=== PATIENT | male | born 1995 | race Caucasian/White ===

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

== ENCOUNTER 2018-05-01 07:48 | Emergency (ER) | payer OTHER ==
[2018-05-01 07:55] VITALS: RESP 18
--- NOTE | 2018-05-01 08:34 | ED ---
Skin/Abscess/FB HPI - General Chief complaint: Skin/Abscess/Foreign Body Stated complaint: inhaled plastic/chest pain Time Seen by Provider: 05/01/18 08:05 Source: patient, RN notes reviewed, old records reviewed Mode of arrival: ambulatory Limitations: no limitations - History of Present Illness Initial comments: Patient is 22-year-old male presents emergency department if she plan of inhaling a piece of the propellant 4 days ago. Patient reports that after he was coughing. Patient reports that he used a friend's updraft machine at the friend pad on his back try to get the foreign body up. He states that he could not do that. Again this happened 4 days ago. Patient reports today started having some chest pain and discomfort and slight difficulty breathing. He reports that he is not coughing at this time. No hemoptysis. - Related Data Home Medications Medication Instructions Recorded Confirmed Ibuprofen [Motrin] 800 mg PO DAILY PRN 11/27/16 11/27/16 guaiFENesin SYRUP 100MG/5ML 200 mg PO BID PRN 11/27/16 11/27/16 [Robitussin] guaiFENesin [Mucinex] 600 mg PO Q4H PRN 11/27/16 11/27/16 Previous Rx's Medication Instructions Recorded Azithromycin [Zithromax Z-pack] 250 mg PO DIRECTED #6 tab 11/27/16 Albuterol Inhaler [Ventolin Hfa 1 - 2 puff INHALATION RT-Q6H PRN 05/01/18 Inhaler] #1 inhaler Allergies Allergy/AdvReac Type Severity Reaction Status Date / Time amoxicillin Allergy Rash/Hives Verified 11/27/16 21:58 Penicillins Allergy Rash/Hives Verified 11/27/16 21:58 Review of Systems ROS Statement: Those systems with pertinent positive or pertinent negative responses have been documented in the HPI. ROS Other: All systems not noted in ROS Statement are negative. Past Medical History Past Medical History: No Reported History History of Any Multi-Drug Resistant Organisms: None Reported Past Surgical History: No Surgical Hx Reported Past Psychological History: No Psychological Hx Reported Smoking Status: Current some day smoker Past Alcohol Use History: Occasional Past Drug Use History: Marijuana General Exam - General Exam Comments Initial Comments: This is a 22-year-old male. Alert and oriented. No significant distress. Limitations: no limitations General appearance: alert, in no apparent distress Head exam: Present: atraumatic, normocephalic, normal inspection Eye exam: Present: normal appearance ENT exam: Present: normal exam, mucous membranes moist Neck exam: Present: normal inspection. Absent: tenderness, meningismus, lymphadenopathy Respiratory exam: Present: normal lung sounds bilaterally. Absent: respiratory distress, wheezes, rales, rhonchi, stridor Cardiovascular Exam: Present: regular rate, normal rhythm, normal heart sounds. Absent: systolic murmur, diastolic murmur, rubs, gallop, clicks GI/Abdominal exam: Present: soft, normal bowel sounds. Absent: distended, tenderness, guarding, rebound, rigid Extremities exam: Present: normal inspection, full ROM, normal capillary refill. Absent: tenderness, pedal edema, joint swelling, calf tenderness Back exam: Present: normal inspection Neurological exam: Present: alert, oriented X3, CN II-XII intact Psychiatric exam: Present: normal affect, normal mood Course Vital Signs 05/01/18 05/01/18 07:51 08:04 Temperature 97.6 F Pulse Rate 85 Respiratory 18 18 Rate Blood Pressure 112/71 O2 Sat by Pulse 98 Oximetry Medical Decision Making - Medical Decision Making Patient is 22-year-old male presents emergency Department with chief complaint of accidentally inhaling piece of plastic from his sleep pattern. This happened 4 days ago. He reports that he may have inhaled a 1 cm x 0.5 cm x 2 mm rectangular foreign body. It is white in color. He has another one here with him. It is a filter for his VapoRub pen. Patient lungs are clear to auscultation at this time. He has no significant wheezing and stridor. He is not coughing in the exam room. No fevers or chills. Chest x-ray this time is negative for any acute process. I did discuss that this could be a nidus for infection such as pneumonia. Patient will be given information follow-up with PCP and pulmonology. He may need to have a bronchoscopy. Considering Patient has no other major respiratory distress or other symptoms at this time Patient can be monitored. I discussed with the Patient on inhaler. All questions answered return parameters were discussed. - Radiology Data Radiology results: report reviewed Chest x-rays negative for any acute process. Disposition Clinical Impression: Inhaled foreign object Disposition: HOME SELF-CARE Condition: Good Instructions: Aspiration Pneumonia (DC) Additional Instructions: Patient has follow-up with primary care physician in pulmonology. He is here earlier as needed for shortness of breath. And coughing. Patient may need to follow-up with pulmonology for bronchoscopy for foreign body removal. Prescriptions: Albuterol Inhaler [Ventolin Hfa Inhaler] 1 - 2 puff INHALATION RT-Q6H PRN #1 inhaler PRN Reason: Shortness Of Breath Is patient prescribed a controlled substance at d/c from ED?: No Referrals: None,Stated [Primary Care Provider] - 1-2 days Jerome Suggs MD [STAFF PHYSICIAN] - 1-2 days Time of Disposition: 08:45
--- NOTE | 2018-05-01 08:37 | XR ---
EXAMINATION TYPE: XR chest 2V DATE OF EXAM: 05/01/2018 COMPARISON: NONE HISTORY: Inhalation incident, burning feeling in chest, pain TECHNIQUE: Frontal and lateral views of the chest are obtained. FINDINGS: There is no focal air space opacity, pleural effusion, or pneumothorax seen. The cardiac silhouette size is within normal limits. The osseous structures are intact. IMPRESSION: No acute cardiopulmonary process.
[2018-05-01 09:11] VITALS: BP 121/59; PULSE 56; TEMP 97.5
== END 2018-05-01 09:13 | disposition home or self-care (01) ==
LOC: EC 07:48
DX: T17.998A Other foreign object in respiratory tract, part unspecified causing other injury, initial encounter (principal); F17.200 Nicotine dependence, unspecified, uncomplicated; Z88.0 Allergy status to penicillin
CPT/HCPCS: 71046; 99285

== ENCOUNTER 2018-05-03 00:24 | Emergency (ER) | payer OTHER ==
[2018-05-03 00:29] VITALS: BP 114/63; PULSE 65; RESP 17; TEMP 98.1
--- NOTE | 2018-05-03 01:18 | XR ---
EXAMINATION TYPE: XR chest 2V DATE OF EXAM: 05/03/2018 COMPARISON: 05/01/2018 HISTORY: Chest pain TECHNIQUE: Frontal and lateral views of the chest are obtained. FINDINGS: Heart and mediastinum are normal. Lungs are clear. Diaphragm is normal. Bony thorax appear s normal. IMPRESSION: Normal chest. No change.
[2018-05-03] MEDS ORDERED: predniSONE 20 MG TAB PO STA (01:46)
--- NOTE | 2018-05-03 01:49 | ED ---
SOB HPI - General Chief Complaint: Shortness of Breath Stated Complaint: SOB Time Seen by Provider: 05/03/18 01:31 Source: patient Mode of arrival: ambulatory Limitations: no limitations - History of Present Illness Initial Comments: Is a 22-year-old male who presents emergency department for an episode of shortness of breath. The patient was seen here couple of days ago for similar. The patient states that he accidentally inhaled a TicTac size piece of plastic from his friends rate and. He states that since that he's been having intermittent episodes of shortness of breath. He had an episode tonight which she stated was relieved with albuterol. He states that it felt like he was breathing through a straw. The patient does have a follow-up appointment with a credentials specialist in the next 7 days however became concerned and returned to the emergency department. The patient states that his symptoms have now completely resolved and he feels back to normal. He denies any fevers or chills. No cough. No other acute complaints. - Related Data Home Medications Medication Instructions Recorded Confirmed Ibuprofen [Motrin] 800 mg PO DAILY PRN 11/27/16 11/27/16 guaiFENesin SYRUP 100MG/5ML 200 mg PO BID PRN 11/27/16 11/27/16 [Robitussin] guaiFENesin [Mucinex] 600 mg PO Q4H PRN 11/27/16 11/27/16 Previous Rx's Medication Instructions Recorded Azithromycin [Zithromax Z-pack] 250 mg PO DIRECTED #6 tab 11/27/16 Albuterol Inhaler [Ventolin Hfa 1 - 2 puff INHALATION RT-Q6H PRN 05/01/18 Inhaler] #1 inhaler predniSONE 50 mg PO DAILY #4 tablet 05/03/18 Allergies Allergy/AdvReac Type Severity Reaction Status Date / Time amoxicillin Allergy Rash/Hives Verified 05/03/18 00:29 Penicillins Allergy Rash/Hives Verified 05/03/18 00:29 Review of Systems ROS Statement: Those systems with pertinent positive or pertinent negative responses have been documented in the HPI. ROS Other: All systems not noted in ROS Statement are negative. Past Medical History Past Medical History: No Reported History History of Any Multi-Drug Resistant Organisms: None Reported Past Surgical History: No Surgical Hx Reported Past Psychological History: No Psychological Hx Reported Smoking Status: Current some day smoker Past Alcohol Use History: Occasional Past Drug Use History: Marijuana General Exam - General Exam Comments Initial Comments: Constitutional: Awake alert Appears comfortable Head: Normocephalic atraumatic Eyes: no conjunctival injection No scleral icterus EOMI Neck: No JVD Supple Heart: Regular rate rhythm normal S1-S2 no murmurs Lungs: Clear to auscultation bilaterally No wheezing No rales Abdomen: Soft nondistended nontender Extremities: Non edematous DP pulses intact Radial pulses intact Neuro: A&Ox3 No focal neurologic deficits Psych: Appropriate mood and affect Limitations: no limitations Course Vital Signs 05/03/18 00:25 Temperature 98.1 F Pulse Rate 65 Respiratory 17 Rate Blood Pressure 114/63 O2 Sat by Pulse 98 Oximetry Medical Decision Making - Medical Decision Making This is a 22-year-old male who came in for shortness of breath. I had along discussion with the patient. Chest x-ray was unremarkable and unchanged from previous. The patient does have an appointment with a credentials specialist in the future. I stated that likely there would be nothing emergent done this evening. I did state that if we want to get a better look at his pulmonary airways that a computed tomography scan would be a better study. However the likelihood of x-ray finding the small piece of plastic was very low and would likely not knife changer. He stated that he did not want to pursue a study that would cost him more money and not necessarily change the outcome. I told him that I would add steroids to his regimen. Told to use the albuterol every 6 hours. He can always return if he is concerned or has worsening symptoms. Otherwise follow-up with pulmonology. All questions answered. Disposition Clinical Impression: Aspiration of foreign body Disposition: HOME SELF-CARE Condition: Stable Instructions: Flexible Bronchoscopy (ED) Prescriptions: predniSONE 50 mg PO DAILY #4 tablet Is patient prescribed a controlled substance at d/c from ED?: No Referrals: None,Stated [Primary Care Provider] - 1-2 days
== END 2018-05-03 02:21 | disposition home or self-care (01) ==
LOC: EC 00:24
DX: T17.990A Other foreign object in respiratory tract, part unspecified in causing asphyxiation, initial encounter (principal); F17.200 Nicotine dependence, unspecified, uncomplicated; Z88.0 Allergy status to penicillin
CPT/HCPCS: 71046; 99285; J7512

== ENCOUNTER 2018-05-11 14:01 | Day surgery (SDC) | payer OTHER ==
[2018-05-11 14:22] VITALS: RESP 16; TEMP 97.9
[2018-05-11] MEDS ORDERED: KETAMINE 10 MG/ML 20 ML VIAL ONE (15:41)
[2018-05-11] MEDS ORDERED: PROPOFOL 10 MG/ML 20 ML VIAL IV ONE (15:41)
[2018-05-11] MEDS ORDERED: MIDAZOLAM 2 MG/2 ML VIAL ONE (15:41)
[2018-05-11] MEDS ORDERED: LIDOCAINE 1% INJ 10MG/ML (20 ML MDV) ONE (15:41)
[2018-05-11] MEDS ORDERED: LACTATED RINGERS 1,000 ML IV ONE (15:46)
[2018-05-11 16:22] VITALS: BP 110/60; PULSE 70
--- NOTE | 2018-05-11 21:29 | PCN ---
PROCEDURE NOTE OPERATIVE PROCEDURE: Bronchoscopy and airways examination. PREOPERATIVE DIAGNOSIS: History of foreign body inhalation/aspiration. POSTOPERATIVE DIAGNOSIS: No evidence of a foreign body seen in the airways upon bronchoscopy. ANESTHESIA USED: IV conscious sedation by ENCAPSULATOR. PROCEDURE: The patient was prepared according to the bronchoscopy protocol. O2 was applied via nasal cannula, and the patient was placed in a supine position. We monitored his O2 saturation continuously. Blood pressure was intermittently monitored. Cardiac rhythm was continuously monitored. After adequate IV conscious sedation, a few mL of lidocaine were instilled into the right naris, and the bronchoscope was advanced through the right nares to the area of the vocal cords. The area of the vocal cords was normal. Piriform sinuses were clear. There was no evidence of foreign body anywhere around the area of the vocal cords or upper airways. Then lidocaine was applied over the vocal cords, the bronchoscope was advanced further down. Thorough examination was done of the trachea, meghann, right upper lobe, right middle lobe, right lower lobe left upper lobe lingula and left lower lobe. Thorough examination was done, each individual lobe and segments were examined, and there was no evidence of foreign body in the airways. Then the bronchoscope was pulled out of the airways, procedure was well tolerated, and no evidence of any immediate complications. The patient will be assured, and the pictures will be shown to the patient and his mother. MMODL / IJN: [id number] /
== END 2018-05-11 16:37 | disposition home or self-care (01) ==
LOC: RADXRMAIN 14:01 → ORWHC2ENDO 16:37
PROVIDERS: ATTEND Internal Medicine
DX: T17.900A Unspecified foreign body in respiratory tract, part unspecified causing asphyxiation, initial encounter (principal); F17.210 Nicotine dependence, cigarettes, uncomplicated; Z88.0 Allergy status to penicillin
CPT/HCPCS: 31622; J2250; J2001; J2704; 31635

== ENCOUNTER → 2018-05-17 | Outpatient (CLI) | payer OTHER ==
[2018-05-17 17:06] LABS: ABG HCO3 26 mmol/L (21-25); ABG PCO2 41 mmHg (35-45); ABG PO2 100 mmHg (83-108); ABG TCO2 27 mmol/L (19-24)
[2018-05-17 17:07] LABS: ABG Base Excess 0.8 mmol/L
== END | disposition home or self-care (01) ==
LOC: LABWHC1 16:43
PROVIDERS: ATTEND Internal Medicine
DX: R06.02 Shortness of breath (principal)
CPT/HCPCS: 36415; 36600; 82805; 85379

== ENCOUNTER 2020-08-27 08:08 | Day surgery (SDC) | payer OTHER ==
[2020-08-24 14:28] VITALS: BMI 27.0
[~2020-08-27 08:08] MED LIST: LACTATED RINGERS 1,000 ML IV SCH; LIDOCAINE 1% (10MG/ML) FOR IV START INTRADERMA PRN
[2020-08-27 08:29] VITALS: TEMP 97.7
[2020-08-27] MEDS ORDERED: PROPOFOL 10 MG/ML 20 ML VIAL IV ONE (09:49)
[2020-08-27] MEDS ORDERED: GLYCOPYRROLATE 0.2 MG/ML 2 ML VIAL ONE (09:49)
[2020-08-27] MEDS ORDERED: LIDOCAINE 1% INJ 10MG/ML (20 ML MDV) ONE (09:49)
[2020-08-27] MEDS ORDERED: MIDAZOLAM 2 MG/2 ML VIAL ONE (09:49)
--- NOTE | 2020-08-27 09:55 | P.GSHP ---
History of Present Illness H&P Date: 08/27/20 Chief Complaint: GERD This a 24-year-old male who presents today for EGD. Had issues with GERD. Past Medical History Past Medical History: GERD/Reflux Additional Past Medical History / Comment(s): difficulty breathing and pain in chest [id number] History of Any Multi-Drug Resistant Organisms: None Reported Past Surgical History: No Surgical Hx Reported Additional Past Surgical History / Comment(s): bronchoscopy Past Anesthesia/Blood Transfusion Reactions: No Reported Reaction Smoking Status: Never smoker Medications and Allergies Home Medications Medication Instructions Recorded Confirmed Type Albuterol Inhaler (u) [Ventolin 1 - 2 puff INHALATION RT-Q6H PRN 05/01/18 08/27/20 Rx Hfa Inhaler (u)] #1 inhaler Omeprazole 20 mg PO DAILY 08/24/20 08/27/20 History Allergies Allergy/AdvReac Type Severity Reaction Status Date / Time amoxicillin Allergy Rash/Hives Verified 08/24/20 14:23 Penicillins Allergy Rash/Hives Verified 08/24/20 14:23 Surgical - Exam Vital Signs Temp Pulse Resp BP Pulse Ox 97.7 F 76 16 128/68 98 08/27/20 08:24 08/27/20 08:24 08/27/20 08:24 08/27/20 08:24 08/27/20 08:24 - General well developed, well nourished, no distress - Eyes PERRL - ENT normal pinna - Neck no masses - Respiratory normal expansion - Cardiovascular Rhythm: regular - Abdomen Abdomen: soft, non tender Assessment and Plan Assessment: GERD. We'll perform EGD.
--- NOTE | 2020-08-27 10:00 | P.OP ---
Date of Procedure: 08/27/20 Preoperative Diagnosis: GERD Postoperative Diagnosis: Antral gastritis Procedure(s) Performed: EGD Anesthesia: MAC Surgeon: Chester Murphy Pathology: other (Antrum) Condition: stable Disposition: PACU Description of Procedure: The patient's placed on the endoscopy table in the lateral position. He recei karen IV sedation. The gastroscope placed oropharynx passed in the esophagus and stomach. Scope was pylorus. The first and second portion of the duodenum appeared normal. Scope was then brought back the antrum this. Mildly inflamed. A biopsies performed. Scope was unretroflexed and remainder stomach appeared normal. There is no significant hiatal hernia. The GE junction was at 47. The distal esophagus appeared normal. The proximal esophagus appeared normal. Scope was withdrawn for patient.
[2020-08-27 10:19] VITALS: RESP 16
[2020-08-27 10:40] VITALS: BP 122/74; PULSE 74
--- NOTE | 2020-08-27 13:50 | NM ---
EXAMINATION TYPE: NM hepatobiliary w CCK DATE OF EXAM: 08/27/2020 COMPARISON: NONE HISTORY: Indigestion and pain. Epigastric pain with increased appetite per patient. TECHNIQUE: After the intravenous administration of 4.4 mCi Tc 99m Mebrofenin hepatobiliary scintigrap hy is performed. Immediate images post injection. FINDINGS: There is satisfactory initial accumulation of tracer by the liver. The gallbladder is visualized wit hin 20 minutes. The small bowel activity is not even well seen even after 60 minutes. At one hour C CK was administered, patient was injected with 2.0 mcg of Kinevac, and gallbladder ejection fraction is calculated at 43 %, in the normal range. Therefore there is no scintigraphic evidence of cystic o r common bile duct obstruction to suggest acute cholecystitis or gallbladder dyskinesia. IMPRESSION: Exam is within normal limits.
== END 2020-08-27 10:47 | disposition home or self-care (01) ==
LOC: ORWHC2ENDO 08:08
PROVIDERS: ATTEND Surgery
DX: K29.50 Unspecified chronic gastritis without bleeding (principal); K21.9 Gastro-esophageal reflux disease without esophagitis; J45.909 Unspecified asthma, uncomplicated; Z87.09 Personal history of other diseases of the respiratory system; Z79.899 Other long term (current) drug therapy; Z88.0 Allergy status to penicillin
CPT/HCPCS: 88305; 78227; 43239; A9537; J2250; J2805; J2001; J2704

== ENCOUNTER 2020-11-17 16:01 | Emergency (ER) | payer OTHER ==
[2020-11-17 18:01] VITALS: BP 124/74; PULSE 86; RESP 20; TEMP 99.3
[2020-11-17] MEDS ORDERED: LIDOCAINE 1%-EPI 1:100,000 20 ML VIAL SQ STA (18:03)
--- NOTE | 2020-11-17 18:57 | ED ---
Skin/Abscess/FB HPI - General Chief complaint: Skin/Abscess/Foreign Body Stated complaint: Lump on neck Time Seen by Provider: 11/17/20 18:03 Source: patient Mode of arrival: ambulatory Limitations: no limitations - History of Present Illness Initial comments: 25-year-old male presents to emergency Department with a chief complaint of lump on the neck. States his been ongoing for past several weeks and gradually increasing in size. States he went to his primary care physician who started him on Bactrim and he has so far taken 4 days with the medication. He denies any fevers or chills. States the lump is tender to touch but denies any drainage from the region. Denies lightheadedness, dizziness, headaches, limited range of motion to neck. - Related Data Home Medications Medication Instructions Recorded Confirmed Omeprazole 20 mg PO DAILY 08/24/20 08/27/20 Previous Rx's Medication Instructions Recorded Albuterol Inhaler (Mhu) [Ventolin 1 - 2 puff INHALATION RT-Q6H PRN 05/01/18 Hfa Inhaler (Mhu)] #1 inhaler Allergies Allergy/AdvReac Type Severity Reaction Status Date / Time amoxicillin Allergy Rash/Hives Verified 11/17/20 18:01 Penicillins Allergy Rash/Hives Verified 11/17/20 18:01 Review of Systems ROS Statement: Those systems with pertinent positive or pertinent negative responses have been documented in the HPI. ROS Other: All systems not noted in ROS Statement are negative. Past Medical History Past Medical History: GERD/Reflux Additional Past Medical History / Comment(s): difficulty breathing and pain in chest [id number] History of Any Multi-Drug Resistant Organisms: None Reported Past Surgical History: No Surgical Hx Reported Additional Past Surgical History / Comment(s): bronchoscopy Past Anesthesia/Blood Transfusion Reactions: No Reported Reaction Past Psychological History: No Psychological Hx Reported Smoking Status: Never smoker General Exam Limitations: no limitations General appearance: alert, in no apparent distress Head exam: Present: atraumatic, normocephalic, normal inspection Eye exam: Present: normal appearance, PERRL, EOMI Pupils: Present: normal accommodation ENT exam: Present: normal exam, normal oropharynx, mucous membranes moist Neck exam: Present: full ROM. Absent: normal inspection (Fluctuant abscess on the right side of the neck measuring approximately 2 cm in diameter. No overlying cellulitis.), tenderness, lymphadenopathy, thyromegaly Respiratory exam: Present: normal lung sounds bilaterally. Absent: respiratory distress, rhonchi, stridor Cardiovascular Exam: Present: regular rate, normal rhythm, normal heart sounds Extremities exam: Present: normal inspection, full ROM Back exam: Present: normal inspection, full ROM Neurological exam: Present: alert, oriented X3 Psychiatric exam: Present: normal affect, normal mood Skin exam: Present: warm, dry, intact, normal color Course Vital Signs 11/17/20 17:58 Temperature 99.3 F Pulse Rate 86 Respiratory 20 Rate Blood Pressure 124/74 O2 Sat by Pulse 99 Oximetry Procedures - Incision & Drainage Consent Obtained: verbal consent Indication: Abscess Site: neck Size (cm): 2 Anesthetic Used: lidocaine 1%, with epi Amount (mLs): 1 I&D Cleaning Method: Alcohol Wipe Sterile Field Used?: No Scalpel Used: #11 Needle Aspiration Performed?: No Irrigation Performed?: No I&D Drainage Obtained: Pus, Blood Culture Obtained?: No Patient Tolerated Procedure: well, no complications Medical Decision Making - Medical Decision Making 25-year-old male presents to emergency department a chief complaint of a lump on the neck. On physical examination, patient has an abscess on the right side of the neck that is fluctuant. Incision and drainage performed and was able to r emove quite a bit of pus. Patient advised to continue taking the Bactrim. Patient advised to apply warm compresses. Discharge instructions given. Return parameters discussed. Case discussed with . Disposition Clinical Impression: Cutaneous abscess Disposition: HOME SELF-CARE Condition: Stable Instructions (If sedation given, give patient instructions): Abscess (ED), Abscess Incision and Drainage (DC) Additional Instructions: Take prescribed medication as directed. Apply warm compresses. Return to emergency department if symptoms worsen. Follow-up with the primary care physician. Is patient prescribed a controlled substance at d/c from ED?: No Referrals: None,Stated [Primary Care Provider] - 1-2 days Time of Disposition: 18:57
== END 2020-11-17 19:26 | disposition home or self-care (01) ==
LOC: EC 16:01
DX: L02.11 Cutaneous abscess of neck (principal); K21.9 Gastro-esophageal reflux disease without esophagitis; Z79.899 Other long term (current) drug therapy; Z88.0 Allergy status to penicillin
CPT/HCPCS: 10060; 99283

== ENCOUNTER → 2021-06-15 | Outpatient (CLI) | payer OTHER ==
--- NOTE | 2021-06-16 09:15 | CT ---
EXAMINATION TYPE: CT chest wo con DATE OF EXAM: 06/15/2021 COMPARISON: Chest x-ray 05/17/2018 HISTORY: chest pain and pressure, SOB x [address] DLP: 366.9 mGycm. Automated Exposure Control for Dose Reduction was Utilized. TECHNIQUE: CT scan of the thorax is performed without IV contrast. FINDINGS: Lack of intravenous contrast could compromise sensitivity LUNGS: The lungs are grossly clear, there is no concerning parenchymal mass or nodule identified. T here is no pleural effusion or pneumothorax seen. The tracheobronchial tree is patent. MEDIASTINUM: Lack of IV contrast is noted to limit evaluation for mediastinal and especially hilar ad enopathy. There are no definitive greater than 1 cm hilar or mediastinal lymph nodes. No cardiomega ly or pericardial effusion is seen. OTHER: Suspect some gynecomastia changes, correlate. The spleen is enlarged. Multilevel Schmorl's nod e formation present within the visualized spine, there is a slight spinal curvature. IMPRESSION: Noncontrast exam. Splenomegaly and additional findings above.
== END | disposition home or self-care (01) ==
LOC: RADCTMAIN 16:54
PROVIDERS: ATTEND Family Medicine
DX: R07.9 Chest pain, unspecified (principal); R06.02 Shortness of breath; R16.1 Splenomegaly, not elsewhere classified
CPT/HCPCS: 71250